=== PATIENT | male | born 1930 | race Caucasian/White ===

== ENCOUNTER 2017-10-23 14:01 | Emergency (ER) | payer MEDICARE, OTHER ==
[~2017-10-23] VITALS: Ht 180.3 cm; Wt 81.7 kg
[~2017-10-23 14:01] MED LIST: ALPHA LIPOIC A300 MG PO; ALPHA-LIPOIC AC50 MG PO; ASPIR 8181 MG PO; CLARITIN10 M2 PO; COZAAR50 MG PO; FIBER170 GM PO; GLUCOSAMINE1000 MG PO; HYDROCODON-ACE1 EA10 PO; KEFLEX250 MG PO; KEFLEX500 MG PO; LEVOFLOXACIN500 MG PO; LUCENTIS0.3 MG/0.0 OPTH; LUTEIN6 M1 PO; METFORMIN HCL1000 M1 PO; METFORMIN HCL500 M1 PO; NIASPAN1000 MG PO; NIASPAN500 MG PO; NORCO 7.5-3251 EACH PO; OCUVITE TABLET1 EAC1 PO; PANTOPRAZOLE SO40 MG PO; PEPCID AC10 MG PO; PLAVIX75 MG PO; PRESERVISION L1 EACH PO; SEPTRA DS TABL1 EACH PO; SIMVASTATIN20 MG PO; SLOW-MAG71.5 MG PO; TRIAMTERENE-HC1 EAC1 PO; TRIAMTERENE-HC1 EAC3 PO; ULTRAM50 MG PO; VITAMIN B-121000 MCG PO; VITAMIN B12-FO1 EACH PO; XARELTO10 MG PO
[2017-10-23] MEDS ORDERED: METOPROLOL SUCC25 MG PO (14:21)
[2017-10-23] MEDS ORDERED: PLAVIX75 MG PO (14:21)
--- OUTSIDE RECORDS SUMMARY | 2017-10-23 14:32 | XMS | Clinical Summary ---
Demographics + + + | Address | [address] | | | [place] [address] | + + + | Home Phone | | + + + | Preferred Language | Unknown | + + + | Marital Status | | + + + | Roman Catholic Affiliation | Unknown | + + + | Race | White | + + + | Ethnic Group | Not or | + + + Author + + + | Author | [facility] | + + + | Organization | [facility] | + + + | Address | Unknown | + + + | Phone | Unavailable | + + + Support + + +---------+ + | Name | Relationship | Address | Phone | + + +---------+ + | JAMIL HAWLEY | ECON | Unknown | | + + +---------+ + Care Team Providers + +------+ + | Care Hoop Punch And Coiler Operator Helper Name | Role | Phone | + +------+ + PP | Unavailable | + +------+ + Source Comments MATTHEW is fully live on both [facility] Ambulatory and [facility] InPatient.[facility] Allergies Not on File Current Medications Not on file Active Problems Not on file Social History + +-------+ +--------+------+ | Tobacco Use | Types | Packs/Day | Years | Date | | | | | Used | | + +-------+ +--------+------+ | Never Assessed | | | | | + +-------+ +--------+------+ + + + | Sex Assigned at | Date Recorded | | | | + + + | Not on file | | + + + Plan of Treatment + + + + + | Health Maintenance | Due Date | Last Done | Comments | + + + + + | INFLUENZA VACCINE | | | | | (FLU SHOT) | 8 | | | + + + + + Results Not on filefrom Last 3 Months"
--- OUTSIDE RECORDS SUMMARY | 2017-10-23 14:32 | XMS | Clinical Summary ---
Demographics + + + | Address | [address] | | | [place] [address] | + + + | Home Phone | | + + + | Preferred Language | Unknown | + + + | Marital Status | | + + + | Jain Affiliation | 1076 | + + + | Race | Unknown | + + + | Ethnic Group | Unknown | + + + Author + + + | Author | [facility] | + + + | Organization | [facility] [employer] [facility] | + + + | Address | Unknown | + + + | Phone | Unavailable | + + + Support + + +---------+ + | Name | Relationship | Address | Phone | + + +---------+ + | Afsaneh Sewell | ECON | Unknown | | + + +---------+ + Care Team Providers + +------+ + | Care Director Of Global Sales Name | Role | Phone | + +------+ + | Lacho Foster MD | PP | | + +------+ + Allergies + + + + + + | Active Allergy | Reactions | Severity | Noted | Comments | | | | | Date | | + + + + + + | Sulfamethoxazole-Tri | Other (See Comments) | Medium | 12/20/19 | flushing effect | | methoprim | | | 17 | | + + + + + + Current Medications + + +---------+---------+------+------+-------+ | Prescription | Sig. | Disp. | Refills | Star | End | Statu | | | | | | t | Date | s | | | | | | Date | | | + + +---------+---------+------+------+-------+ | loratadine | Take 10 mg by mouth | | | | | Activ | | (CLARITIN) 10 MG | daily. | | | | | e | | tablet | | | | | | | + + +---------+---------+------+------+-------+ | Alpha-Lipoic Acid | Take 600 mg by mouth | | | | | Activ | | 600 MG CAPS | daily. | | | | | e | + + +---------+---------+------+------+-------+ | Cyanocobalamin | Take 1,000 mcg by | | | | | Activ | | (VITAMIN B 12 PO) | mouth daily. | | | | | e | + + +---------+---------+------+------+-------+ | famotidine | Take 40 mg by mouth | | | | | Activ | | (PEPCID) 10 MG | 2 (two) times daily. | | | | | e | | tablet | | | | | | | + + +---------+---------+------+------+-------+ | triamcinolone | 1 spray by Each Nare | | | | | Activ | | (NASACORT AQ) 55 | route as needed. | | | | | e | | MCG/ACT nasal | | | | | | | | inhaler | | | | | | | + + +---------+---------+------+------+-------+ | sodium chloride | 1 spray by Each Nare | | | | | Activ | | (OCEAN) 0.65 % nasal | route as needed for | | | | | e | | | Congestion. | | | | | | + + +---------+---------+------+------+-------+ | | Take by mouth | | | | | Activ | | Glucosamine-Chondroi | daily. | | | | | e | | tin-Vit C | | | | | | | | 9384-7583-06 MG/30ML | | | | | | | | LIQD | | | | | | | + + +---------+---------+------+------+-------+ | glucose blood test | 1 each by Other | | | | | Activ | | strip | route as needed for | | | | | e | | | Other. Use as | | | | | | | | instructed | | | | | | + + +---------+---------+------+------+-------+ | pseudoephedrine | Take 30 mg by mouth | | | | | Activ | | (SUDAFED) 30 MG | every 4 (four) hours | | | | | e | | tablet | as needed for | | | | | | | | Congestion. | | | | | | + + +---------+---------+------+------+-------+ | aspirin 81 MG EC | Take 1 tablet by | 30 | 1 | 12/2 | | Activ | | tablet | mouth daily. | tablet | | 4/20 | | e | | | | | | 17 | | | + + +---------+---------+------+------+-------+ | clopidogrel | Take 1 tablet by | 30 | 11 | 12/2 | 12/2 | Activ | | (PLAVIX) 75 MG | mouth daily. | tablet | | / | 11/11 | e | | tablet | | | | 17 | 18 | | + + +---------+---------+------+------+-------+ | insulin lispro, | Inject 0-14 Units | 10 mL | 0 | 12/2 | | Activ | | human, (HUMALOG) 100 | into the skin 3 | | | 20 | | e | | UNIT/ML injection | (three) times daily | | | 17 | | | | | before meals for 30 | | | | | | | | days. High Dose AC | | | | | | | | Insulin Sliding | | | | | | | | ScaleBlood Glucose | | | | | | | | High DoseLess than | | | | | | | | 70Initiate | | | | | | | | Hypoglycemia | | | | | | | | Bavsvpty39-404 0 | | | | | | | | Prblz495-5328 | | | | | | | | Sanwe035-9215 | | | | | | | | Iqbzp585-4107 | | | | | | | | Hjgcz099-0796 | | | | | | | | Tngyr910-56076 | | | | | | | | Nshsa042-15934 | | | | | | | | Units>400* 14 | | | | | | | | Units | | | | | | + + +---------+---------+------+------+-------+ | metoprolol | Take 1 tablet by | 60 | 1 | 12/2 | | Activ | | (LOPRESSOR) 25 MG | mouth 2 (two) times | tablet | | 4/20 | | e | | tablet | daily. | | | 17 | | | + + +---------+---------+------+------+-------+ | metFORMIN | Take 1 tablet by | 30 | 0 | 12/2 | | Activ | | (GLUCOPHAGE-XR) 500 | mouth daily with | tablet | | 7/20 | | e | | MG 24 hr tablet | dinner. | | | 17 | | | + + +---------+---------+------+------+-------+ | calcium carbonate | Take 2 tablets by | 30 | 0 | 12/2 | | Activ | | (TUMS) 500 MG | mouth every 6 (six) | tablet | | 7/20 | | e | | chewable tablet | hours as needed. | | | 17 | | | + + +---------+---------+------+------+-------+ | simvastatin | Take 1 tablet by | 30 | 11 | 12/2 | | Activ | | (ZOCOR) 20 MG tablet | mouth nightly. | tablet | | 7/20 | | e | | | | | | 17 | | | + + +---------+---------+------+------+-------+ | losartan (COZAAR) | Take 25 mg by mouth | | | | | Activ | | 25 MG tablet | daily. | | | | | e | + + +---------+---------+------+------+-------+ | brimonidine | Place 1 drop into | | 0 | 04/1 | | Activ | | (ALPHAGAN) 0.2 % | both eyes daily. | | | 9/20 | | e | | ophthalmic solution | | | | 18 | | | + + +---------+---------+------+------+-------+ Active Problems + + + | Problem | Noted Date | + + + | Status post aortic valve replacement with bioprosthetic valve | 06/20/2017 | + + + | Status post double vessel coronary artery bypass | 06/20/2017 | + + + | History of aortic valve replacement with porcine valve | 06/12/2017 | + + + + + | Overview: #21 Mala COOMBS | + + + + + | S/P CABG x 2 | 06/12/2017 | + + + + + | Overview: REHMAN>LAD, SVG>PDA, KATHYA ligation (45 mm AtriClip) | + + + + + | Aortic valve disorder | 06/08/2017 | + + + + + | Overview: Added automatically from request for surgery [id number] | + + + + + | Nonrheumatic aortic valve stenosis | 04/26/2016 | + + + + + | Last Assessment & Plan: /AI. [facility] severe calc /mild AI (calc AVAV 1.0cm2, peak/mean | | gradients 68/49mmHg), concentric LVH, LVEF >70%, mild MR. | + + + + + | CAD (coronary artery disease), [place] coronary artery | 06/10/2014 | + + + + + | Last Assessment & Plan: 2V-CAD, Hx PCI/stent, LVEF >70%. | | 85yo WM, establishing cardiac care. Known to have coronary | | artery disease and aortic stenosis. 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 He continues to be relatively active, | | stating that he exercises at the local [employer] 2-3 days per | | week, and will be down anywhere from one to 2 hours at a time. | | He does not walk on the treadmill, however uses a stair stepping | | machine, states that he is on the stair stepper for approximately | | 10 minutes. In addition this he also does weight lifting, | | walks, hikes, and fishes. He admits a mild degree of left-sided | | chest discomfort with activity, mild degree of shortness of | | breath, but this is not nearly as severe as what he had when he | | had his stent placed nearly 2 years ago. He describes his | | symptoms as relatively mild, and prior to the stent described the | | chest discomfort as severe and sharp, lasting much longer, and | | radiating down his arms. None of these are currently present. | | He is unaware of any palpitations, however, states that his blood | | pressure has been borderline low, and when he arises he does | | notice transient lightheadedness. He has not fallen, there is | | been no syncope. He denies any orthopnea or PND or edema. An | | echocardiogram dated 04/14/2014 revealed a calculated UMM 1.1cm2, | | with peak/mean gradients 51/39mmHg. as compared to the most | | recent echocardiogram dated 04/21/2016, which reveals a | | calculated UMM 1.0cm2, with peak/mean gradients 68/49mmHg. His | | recent ECG is reviewed. Recent labs reviewed. And his angiogram | | report from 2013 is also reviewed. Today we had a long | | discussion regarding valvular heart disease, and at the aortic | | valve will continue to deteriorate, ultimately requiring | | replacement. Although he is advanced years, however TAVR is | | available, and we discussed the symptoms of increasing angina, | | exertional shortness of breath, and exertional lightheadedness to | | the point of syncope, as symptoms associated with progressive | | aortic stenosis. As he described above, he still remains fairly | | active and has only mild symptoms. Because of his orthostatic | | symptoms, we DC'd his triamterene today. And regarding | | endocarditis prophylaxis, although he does not meet the strict | | criteria, because of his advanced age, I would recommend | | endocarditis prophylaxis. With regards to his angina, I believe | | this can be followed clinically, if his angina worsens, repeat | | coronary assessment would be reasonable. We'll have him back in | | 6 months for repeat evaluation.Hx CABG: noHx PCI/stent: | | 06/10/2016, distal RCA (3.0*15mm Resolute ANSON).Hx Pacemaker/ICD: | | noLast Cath, 06/10/2014: left main OK, long 50-70% mid-LAD (FFR | | 0.82), 50% osteal D1, LCx OK, 50-70% mid-RCA (FFR 0.93), 80% | | distal RCA, small RPDA, large RPLA, Distal RCA stented. LV: | | 149/18, Ao: 133/68, p-p 16mmHg, mean gradient 25mmHg.Last Echo, | | 04/21/2016 ([facility] severe calc /mild AI (calc AVAV | | 1.0cm2, peak/mean gradients 68/49mmHg), concentric LVH, LVEF | | >70%, mild MR.Last Stress Test: naECG, 04/06/2016 (Dr Rider): | | sinus rhythm, 72bpm, possible old inferior SC, IVCD. | + + + + + | Chest pain | 06/10/2014 | + + + | Essential hypertension | 06/10/2014 | + + + + + | Last Assessment & Plan: Hypertension, patient reports | | episodes of borderline blood pressure, symptoms of orthostasis. | | Today we DC'd the triamterene, he'll continue his losartan 25 mg | | daily. | + + + + + | DM (diabetes mellitus) | 06/10/2014 | + + + + + | Last Assessment & Plan: DM2, managed by PCP. | + + + + + | Aortic stenosis | 06/10/2014 | + + + | Hyperlipidemia | 06/10/2014 | + + + + + | Last Assessment & Plan: Hyperlipidemia, at goal, continue | | current meds at current dose (simvastatin). Labs reviewed with | | patient.Lab, 04/11/2016: T Chol: 125, LDL-Chol: 70, HDL-Chol: 34, | | Tri Liver enzymes NML, K: 4.0, | | BUN/Cr: 26/1.2 (GFR 59), glu: 91 | | HgbA1c: 5.4, WBC: 7.1, H/H: 12.9/37.3, plt: 214 | + + + + + | [place] coronary artery calcium score greater than 400 | 06/10/2014 | + + + | Status post insertion of drug eluting coronary artery stent | 06/10/2014 | + + + | Diabetes mellitus, type 2 | | + + + | S/P PTCA (percutaneous transluminal coronary angioplasty) | | + + + Encounters +--------+ + + + + | Date | Type | Specialty | Care Team | Description | +--------+ + + + + | 10/22/ | Documentati | | Marleni De La Fuente MA | Other ([facility] re[facility] | | 2017 | on Only | | | forms) | +--------+ + + + + | 10/22/ | Documentati | | Marleni De La Fuente MA | Other ([facility] | | 2018 | on Only | | | report) | +--------+ + + + + | 10/16/ | Office | | Jorden Lucio, | S/P aortic valve | | 2017 | Visit | | MD | replacement with | | | | | | bioprosthetic valve | | | | | | (Primary Dx); | | | | | | Nonrheumatic aortic | | | | | | valve stenosis; | | | | | | Coronary artery | | | | | | disease, angina | | | | | | presence | | | | | | unspecified, | | | | | | unspecified vessel | | | | | | or lesion type, | | | | | | unspecified whether | | | | | | [place] or | | | | | | transplanted heart; | | | | | | S/P CABG x 2; | | | | | | Essential | | | | | | hypertension with | | | | | | goal blood pressure | | | | | | less than 140/90; | | | | | | Pure | | | | | | hypercholesterolemia | +--------+ + + + + | 09/24/ | Documentati | | Marleni De La Fuente MA | Other ([facility] | | 2017 | on Only | | | form) | +--------+ + + + + | 08/23/ | Telephone | | Marleni De La Fuente MA | | | 2017 | | | | | +--------+ + + + + | 08/21/ | Telephone | | Marleni De La Fuente MA | | | 2017 | | | | | +--------+ + + + + | 08/20/ | Documentati | Marleni Stanford MA | Rehana ([facility] | | 2017 | on Only | | | rehab notes) | +--------+ + + + + | 08/03/ | Telephone | | Yumiko Reddy RN | Care Coordination | | 2017 | | | | | +--------+ + + + + from Last 3 Months Family History + + +------+ + | Medical History | Relation | Name | Comments | + + +------+ + | Diabetes type II | Father | | | + + +------+ + | Stroke | Father | | | + + +------+ + | Arrhythmia | Mother | | pacemaker placed in her 90s | + + +------+ + | Heart disease | Mother | | | + + +------+ + | Rheumatic Fever | Mother | | | + + +------+ + | Arthritis | Sister | | | + + +------+ + | Diabetes type II | Sister | | | + + +------+ + | Parkinson's disease | Sister | | | + + +------+ + + +------+ + + | Relation | Name | Status | Comments | + +------+ + + | Father | | | DMII, CVA,HTN | | | | (Age | | | | | 87) | | + +------+ + + | Mother | | | pacemaker implant | | | | (Age | | | | | 95) | | + +------+ + + | Sister | | Alive | | + +------+ + + | Sister | | | Parkinson | + +------+ + + | Son | | Alive | | + +------+ + + | Son | | Alive | | + +------+ + + Social History + +-------+ +--------+------+ | Tobacco Use | Types | Packs/Day | Years | Date | | | | | Used | | + +-------+ +--------+------+ | Never Smoker | | | | | + +-------+ +--------+------+ + +---+---+---+ | Smokeless Tobacco: | | | | | Never Used | | | | + +---+---+---+ + + +---------+ + | Alcohol Use | Drinks/We | oz/Week | Comments | | | ek | | | + + +---------+ + | No | 1 | 0.6 | occasionally | | | Glasses | | | | | of wine | | | + + +---------+ + + + + | Sex Assigned at | Date Recorded | | | | + + + | Not on file | | + + + Last Filed Vital Signs + + + + | Vital Sign | Reading | Time Taken | + + + + | Blood Pressure | 144/58 | 10/16/2017 3:49 PM PDT | + + + + | Pulse | 57 | 10/16/2017 3:49 PM PDT | + + + + | Temperature | 36.8 C (98.2 F) | 07/05/2017 10:52 AM PST | + + + + | Respiratory Rate | 20 | 06/20/2017 12:18 PM PST | + + + + | Oxygen Saturation | 94% | 10/16/2017 3:49 PM PDT | + + + + | Inhaled Oxygen | - | - | | Concentration | | | + + + + | Weight | 84.6 kg (186 lb 6.4 | 10/16/2017 3:49 PM PDT | | | oz) | | + + + + | Height | 180.3 cm (5' 11") | 10/16/2017 3:49 PM PDT | + + + + | Body Mass Index | 26 | 10/16/2017 3:49 PM PDT | + + + + Plan of Treatment +--------+---------+ + + + | Date | Type | Specialty | Care Team | Description | +--------+---------+ + + + | 02/19/ | Office | | Jorden Lucio, | | | 2017 | Visit | | [address] | | | | | | [place], | | | | | | [place] [address] | | | | | | [phone] | | | | | | | | +--------+---------+ + + + + + + + + | Health Maintenance | Due Date | Last Done | Comments | + + + + + | Diabetic Eye Exam | | | | | | 0 | | | + + + + + | Diabetic Foot Exam | | | | | | 0 | | | + + + + + | Microalbumin | | | | | Screening | 0 | | | + + + + + | Vaccine: | | | | | Dtap/Tdap/Td (1 - | 9 | | | | Tdap) | | | | + + + + + | Vaccine: | | | | | Pneumococcal 65+ | 5 | | | | Low/Medium Risk (1 | | | | | of 2 - PCV13) | | | | + + + + + | Hemoglobin A1c | | 06/13/2017 | | | | 8 | | | + + + + + | Vaccine: Influenza | | | | | (Season Ended) | 8 | | | + + + + + Implants + +------+-------+ +--------+--------+--------+ | Implanted | Type | Area | Manufacture | Device | Expira | Model | | | | | r | | tion | / | | | | | | Identi | Date | Serial | | | | | | fier | | / Lot | + +------+-------+ +--------+--------+--------+ | Clip Occl Atri Stnd Hdl 45mm | | N/A: | ARTICURE | | 03/25/ | [id number] | | - [id number]: Qty: 1 | | Heart | INC - ARTC | | 2018 | / | | on 06/12/2017 by Tori, | | | | | | /[id number] | | Karl Harvey MD | | | | | | | + +------+-------+ +--------+--------+--------+ | Valve Aort Pericard Mgnaes 21 | | N/A: | [facility] | | 11/21/ | [id number] | | - [id number]: Qty: 1 | | Heart | [employer] | | 2020 | / | | on 06/12/2017 by Tori, | | | [facility] - | | | /[id number] | | Karl Harvey MD | | | EDLS | | | 50 | + +------+-------+ +--------+--------+--------+ Results Not on filefrom Last 3 Months Insurance + +--------+ +------+-------+ + | Payer | Benefi | Subscriber | Type | Phone | Address | | | t Plan | ID | | | | | | / | | | | | | | Group | | | | | + +--------+ +------+-------+ + | MEDICARE | MEDICA | xxxxxxxxxx | | | [address] | | | RE | | | | [place] [address] | | | IP-OP | | | | | + +--------+ +------+-------+ + | ODS HEALTH PLAN | ODS | xxxxxxxxx | | | | | | HEALTH | | | | | | | PLAN | | | | | + +--------+ +------+-------+ + + +--------+ +--------+ + + | Guarantor Name | Accoun | Relation to | Date | Phone | Billing Address | | | t Type | Patient | of | | | | | | | | | | + +--------+ +--------+ + + | BETTY SEWELL | Person | Self [birth year] Home: | [address] | | | [place] | | 1931 | [phone] [place] | | | [place] | | | [phone] | + +--------+ +--------+ + +
--- OUTSIDE RECORDS SUMMARY | 2017-10-23 14:32 | XMS | Encounter Summary ---
Demographics + + + | Address | [address] | | | [place] [address] | + + + | Home Phone | | + + + | Preferred Language | Unknown | + + + | Marital Status | | + + + | Mandaen Affiliation | 1076 | + + + | Race | Unknown | + + + | Ethnic Group | Unknown | + + + Author + + + | Author | [facility] | + + + | Organization | [facility] | + + + | Address | Unknown | + + + | Phone | Unavailable | + + + Support + + +---------+ + | Name | Relationship | Address | Phone | + + +---------+ + | Afsaneh Sewell | ECON | Unknown | | + + +---------+ + Care Team Providers + +------+ + | Care Pulp And Paper Tester Name | Role | Phone | + +------+ + | Lacho Foster MD | PCP | | + +------+ + Reason for Visit +--------+ + | Reason | Comments | +--------+ + | Other | [facility] forms | +--------+ + Encounter Details +--------+ + + + + | Date | Type | Department | Care Team | Description | +--------+ + + + + | 10/22/ | Documentati | MORIS Wells | Marleni De La Fuente MA | Other ([facility] | | 2018 | on Only | Tobias Ramirez | | peter) | | | | [address] | | | | | | [place] | | | | | | [address] | | | | | | [phone] | | | +--------+ + + + + Social History + +-------+ +--------+------+ [...] on file | | + + + as of this encounter Plan of Treatment +--------+---------+ + + + | Date | Type | Specialty | Care Team | Description | +--------+---------+ + + + | 02/19/ | Office | Cardiology | Jorden Lucio, | | | 2018 | Visit | | MD [address] | | | | | | [place], | | | | | | [place] [address] | | | | | | [phone] | | | | | | | | +--------+---------+ + + + as of this encounter Visit Diagnoses Not on filein this encounter"
--- OUTSIDE RECORDS SUMMARY | 2017-10-23 15:10 | XMS | Clinical Summary ---
Demographics + + + | Address | [address] | | | [place] [address] | + + + | Home Phone | | + + + | Preferred Language | Unknown | + + + | Marital Status | | + + + | Restorationist Affiliation | 1076 | + + + | Race | Unknown | + + + | Ethnic Group | Unknown | + + + Author + + + | Author | [facility] | + + + | Organization | [facility] | + + + | Address | Unknown | + + + | Phone | Unavailable | + + + Support + + +---------+ + | Name | Relationship | Address | Phone | + + +---------+ + | Afsaneh Sewell | ECON | Unknown | | + + +---------+ + Care Team Providers + +------+ + | Care Physics Department Chair Name | Role | Phone | + [...] | | | | | | | [phone] MG/30ML | | | | | | [...] | | | | | | | [id number] 0 | | | | | | | | Lfhff711-6016 | | | | | | | | [id number] | | | | | | | | Dmefl750-5377 | | | | | | | | Matvj967-6437 | | | | | | | | [id number] | | | | | | | | [id number] | | | | | | | [...] Overview: Added automatically from request for surgery [id number] | + + + + + | Nonrheumatic aortic valve stenosis | 04/26/2016 | + + + + + | Last Assessment & Plan: /AI. [facility] severe calc /mild AI (calc AVAV 1.0cm2, peak/mean | | gradients 68/49mmHg), concentric LVH, LVEF >70%, mild MR. | + + + + + | CAD (coronary artery disease), [place] coronary artery | 06/10/2014 | + + + + + | Last Assessment & Plan: 2V-CAD, Hx PCI/stent, LVEF >70%. | | 85yo WM, establishing cardiac care. Known to have coronary | | artery disease and aortic stenosis. 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 | + + + + + [...] Marleni De La Fuente MA | Other ([facility] | | 2017 | on Only | | | forms) | +--------+ + + + + | 10/22/ | Documentati | | Marleni De La Fuente MA | Other ([facility] | | 2018 | on [...] whether | | | | | | [place] or | | | | | | [...] Marleni De La Fuente MA | Other ([facility] | | 2017 | on [...] Documentati | Marleni Stanford MA | Rehana ([facility] | | 2017 | on Only [...] | | | | | | [place] [address] | | | | | | [phone] | | | | | | | [...] N/A: | ARTICURE | | 03/25/ | [id number] | | - [id number]: Qty: 1 | | Heart | INC - ARTC | | 2018 | / | | on 06/12/2017 by Tori, | | | | | | /[id number] | | Karl Harvey MD | | | | | | | + +------+-------+ +--------+--------+--------+ | Valve Aort Pericard Mgnaes 21 | | N/A: | [facility] | | 11/21/ | [id number] | | - [id number]: Qty: 1 | | Heart | [employer] | | 2020 | / | | on 06/12/2017 by Tori, | | | [facility] - | | | /[id number] | | Karl Harvey MD | | [...] | xxxxxxxxxx | | | [address] | | | RE | | | | [place] [phone] | | | IP-OP | | | [...] Self | [birth year] | Home: | [address] | | | [place] | | 1931 | [phone] [place] | | | [place] | | [phone] | + +--------+ +--------+ + +
--- OUTSIDE RECORDS SUMMARY | 2017-10-23 15:10 | XMS | Clinical Summary ---
Demographics + + + | Address | [address] | | | [place] [address] | + + + | Home Phone | | + + + | Preferred Language | Unknown | + + + | Marital Status | | + + + | Restoration Affiliation | 1076 | + + + | Race | Unknown | + + + | Ethnic Group | Unknown | + + + Author + + + | Author | [facility] | | | and [place] | + + + | Organization | [facility] | | | and [place] | + + + | Address | Unknown | + + + | Phone | Unavailable | + + + Support + + +---------+ + | Name | Relationship | Address | Phone | + + +---------+ + | JAMIL HAWLEY | ECON | Unknown | | + + +---------+ + Care Team Providers + +------+ + | Care Airport Sales Agent Name | Role | Phone | + +------+ + PP | Unavailable | + +------+ + Allergies Not on File Current Medications Not [...]
--- OUTSIDE RECORDS SUMMARY | 2017-10-23 15:10 | XMS | Encounter Summary ---
Demographics + + + | Address | [address] | | | [place] [address] | + + + | Home Phone | | + + + | Preferred Language | Unknown | + + + | Marital Status | | + + + | Adventism Affiliation | 1076 | + + + | Race | Unknown | + + + | Ethnic Group | Unknown | + + + Author + + + | Author | [facility] | + + + | Organization | [facility] [employer] [facility] | + + + | Address | Unknown | + + + | Phone | Unavailable | + + + Support + + +---------+ + | Name | Relationship | Address | Phone | + + +---------+ + | Afsaneh Sewell | ECON | Unknown | | + + +---------+ + Care Team Providers + +------+ + | Care Ocular Pathologist Name | Role | Phone | + +------+ + | Lacho Foster MD | PCP | | + +------+ + Reason for Visit +--------+ + | Reason | Comments | +--------+ + | Other | [facility] rehab form | +--------+ + Encounter Details +--------+ + + + + | Date | Type | Department | Care Team | Description | +--------+ + + + + | 09/24/ | Documentati | [facility] | Marleni De La Fuente MA | Other ([facility] rehab | | 2018 | on Only | Tobias Ramirez | | jaz) | | | | [address] | | | | | | [place] | | | | | | [address] | | | | | | [phone] | | | +--------+ + + + [...] | | | | | | [place] [address] | | | | | | [phone] | | | | | | | | +--------+---------+ + + + as of this encounter Visit Diagnoses Not on filein this encounter"
--- OUTSIDE RECORDS SUMMARY | 2017-10-23 15:10 | XMS | Encounter Summary ---
Demographics + + + | Address | [address] | | | [place] [address] | + + + | Home Phone | | + + + | Preferred Language | Unknown | + + + | Marital Status | | + + + | Oriental Orthodox Affiliation | 1076 | + + + | Race | Unknown | + + + | Ethnic Group | Unknown | + + + Author + + + | Author | [facility] | + + + | Organization | [facility] | + + + | Address | Unknown | + + + | Phone | Unavailable | + + + Support + + +---------+ + | Name | Relationship | Address | Phone | + + +---------+ + | Afsaneh Sewell | ECON | Unknown | | + + +---------+ + Care Team Providers + +------+ + | Care Engineer Automated Equipment Name | Role | Phone | + +------+ + | Lacho Foster MD | PCP | | + +------+ + Reason for Visit + + + | Reason | Comments | + + + | Follow-up | | + + + Encounter Details +--------+---------+ + + + | Date | Type | Department | Care Team | Description | +--------+---------+ + + + | 10/16/ | Office | [facility] | Jorden Lucio, | S/P aortic valve | | 2018 | Visit | [facility] | [address] | replacement with | | | | [address] | [place], | bioprosthetic valve | | | | [address] | [place] [address] | (Primary Dx); | | | | [place] [address] | [phone] | Nonrheumatic aortic | | | | [phone] | | valve stenosis; | | | [...] whether | | | | | | [place] or | | | | | | [...] | | | | | hypercholesterolemia | +--------+---------+ + + + Social History + +-------+ [...] + + + as of this encounter Last Filed Vital Signs + + + + | Vital Sign | Reading | Time Taken | + + + + | Blood Pressure | 144/58 | 10/16/2017 3:49 PM PDT | + + + + | Pulse | 57 | 10/16/2017 3:49 PM PDT | + + + + | Temperature | - | - | + + + + | Respiratory Rate | - | - | + + + + | Oxygen [...] PM PDT | + + + + in this encounter Progress Notes Jorden Lucio MD - 10/16/2017 3:45 PM PDTFormatting of this note may be different from the original. Subjective: Patient ID: Darrion Sewell Jr. is a 86 y.o. male. HPI The following portions of the patient's history were reviewed and updated as appropriate: a llergies, current medications, past family history, past medical history, past social histor y, past surgical history and problem list. Mr. Sewell, accompanied by his , came to the office today for a his first post hospit al follow-up visit for his 2 vessel CAD and severe . He underwent aortic valve replaceme nt with a #21 Magna Ease bioprosthetic valve, 2 vessel CABG with a REHMAN graft to the LAD and vein graft to the right PDA, with ligation of the right atrial appendage on 06/12/17. He seems to be doing quite well now. He has been participating in the cardiac rehab program at [facility], and I reviewed his daily reports. His resting blood pressure s are quite variable, often high, and his blood pressure was slightly elevated today, but hi s home blood pressure readings are usually quite well-controlled, looking at his home record s, so I made no changes in his medications today. He was exercising fairly regularly prior to his surgery, and he will be able to resume his former activities once he finishes cardiac rehab. He notes that he does fatigue more easily, which is expected at age 86. He also no irasema that he has mild memory issues since the surgery, particularly in recalling names, and I told him that this is common, and I cannot guarantee that it will improve, although it ofte n does. He can go back to his usual activities at this time, and he had a long list of ques tions regarding them that we went through. A repeat echo was done to get baseline measureme nts for his new bioprosthetic valve, for comparison purposes in the future, should there be any problems, with an EF > 70% and normal measurements for this type in size of valve. I wi ll see him back in 4 months for follow-up. DO NOT RESUSCITATE code status. Review of Systems CONSTITUTIONAL: No recent significant weight change, denies recent fever, chills, night sw eats, significant fatigue NEUROLOGIC: No history of CVA, TIA, migraines, seizures, syncope. No dizziness, gets mild lightheadedness doing yard work. He has a history of peripheral neuropathy of both legs wi th numbness and occasional sharp, stabbing or at times electric shock-like paresthesias, and sciatica of the left leg more often than the right. EYES: Macular degeneration. No amaurosis, diplopia, recent visual changes, cataracts or g [place] ENT: No hearing loss, tinnitus, epistaxis, dysphagia ENDOCRINE: He has history of type II Diabetes mellitus. No history of thyroid disorders or other endocrine problems. No excessive hunger, thirst. PULMONARY/SLEEP: No dyspnea, orthopnea, paroxysmal nocturnal dyspnea. No history of asthm a, emphysema. Denies significant snoring, daytime somnolence. Sleep is refreshing. CARDIOVASCULAR: Denies chest pain, pressure or discomfort. He has a history of CAD, dista l RCA stent 06/07 with 70% stenoses in the LAD and mid RCA. No history of heart failure. No history of cardiac arrhythmias. No palpitations. No history of a heart murmur with severe c alcific , no h/o rheumatic fever. He has a history of Essential Hypertension, Hyperlipide renetta. No edema, no claudication symptoms. -- Echo (07/11/17): EF > 70%, grade 2 diastolic dysfunction, normal RV size and function. N ormal 21 mm Magna bioprosthetic AVR (UMM 1.0 cm , peak/mean gradients 39.9/23.7 mmHg, peak velocity 3.2 m/s, MR, TR, trace PI -- 2-vessel CABG/AVR/KATHYA Ligation (06/12/17): 21 Magna Ease bio-AVR, REHMAN>LAD, SVG>PDA, 45 mm AtriClip -- R/Left Cath (06/01/17): RA-3, PA-29/8, mean 15, PCW-6, CO-5.8, CI-2.85, LM-normal, LAD-mi d 70%, LCx-normal. RCA-mid 70%, could not cross AoV -- Echo (03/20/17): EF > 70%, normal RV, severe , UMM 0.8 cm, peak / mean gradient 60.15 / 39.25 mmHg -- Echo (04/21/16 - [facility]'s): severe calcific /mild AI (UMM 1.0 cm, peak/mean grad ients 68/49mmHg), concentric LVH, LVEF >70%, mild MR. -- Cardiac Cath/PCI (06/10/14): LM-OK, long 50-70% mid-LAD (FFR 0.82), 50% ostial D1, LCx-O K, 50-70% mid-RCA (FFR 0.93), 80% distal RCA > 3.0x15mm Resolute ANSON, small RPDA, large RPLA , Distal RCA stented. LV: 149/18, Ao: 133/68, mean gradient 25mmHg. GASTROINTESTINAL: No recent abdominal pain, nausea, vomiting or diarrhea. Denies PUD, priyanka na, hematochezia, hepatitis. RENAL/: Benign prostatic hypertrophy. No dysuria, hematuria, urinary urgency, hesitancy . HEMATOLOGY/ONCOLOGY: No h/o bleeding disorders, DVT, PE. Denies easy bruisability or ble eding. No history of anemia, transfusions. No history of cancer. MUSCULOSKELETAL: No myalgias, arthralgias. No history of rheumatologic or autoimmune dise ases. CUTANEOUS: No rashes, pruritus, lesions. PSYCHIATRIC: No history of depression, anxiety or other psychiatric problems. Past Medical History Diagnosis Date Anemia Aortic stenosis Asthma childhood BPH (benign prostatic hypertrophy) Coronary artery disease Diabetes mellitus, type 2 (HCC) 2009 Dyspepsia History of aortic valve replacement with porcine valve 06/12/2017 #21 Magna Ease AVR HTN (hypertension) Hyperlipidemia Macular degeneration Neuropathy S/P CABG x 2 06/12/2017 REHMAN>LAD, SVG>PDA, KATHYA ligation (45 mm AtriClip) S/P PTCA (percutaneous transluminal coronary angioplasty) Sciatica Unspecified hearing loss UTI (urinary tract infection) 05/23/2017 Past Surgical History Procedure Laterality Date CARDIAC CATHETERIZATION COLONOSCOPY CORONARY ANGIOPLASTY 06/10/2014 3.0x15mm Resolute ANSON distal RCA CORONARY ARTERY BYPASS GRAFT N/A 06/12/2017 Procedure: CABG - AORTIC VALVE REPAIR/ REPLACEMENT; Surgeon: Karl Valle MD; Locat ion: [facility]; Service: Cardiac; Laterality: N/A; Sternotomy, REHMAN takedown, RLE EVH. FRACTURE SURGERY HARDWARE PRESENT HARDWARE REMOVAL LASER OF PROSTATE W/ GREEN LIGHT PVP N/A left hip pinning Left NASAL SINUS SURGERY N/A TONSILLECTOMY UNLISTED PROCEDURE ARTHROSCOPY Left hip fx., 3 pins in hip Family History Problem Relation Age of Onset Heart disease Mother Arrhythmia Mother pacemaker placed in her 90s Rheumatic Fever Mother Diabetes type II Father Stroke Father Diabetes type II Sister Arthritis Sister Parkinson's disease Sister reports that he has never smoked. He has never used smokeless tobacco. He reports that he does not drink alcohol or use drugs. Allergies Allergen Reactions Bactrim [Sulfamethoxazole-Trimethoprim] Other (See Comments) flushing effect Current Outpatient Prescriptions: Alpha-Lipoic Acid 600 MG CAPS, Take 600 mg by mouth daily., Disp: , Rfl: aspirin 81 MG EC tablet, Take 1 tablet by mouth daily., Disp: 30 tablet, Rfl: 1 brimonidine (ALPHAGAN) 0.2 % ophthalmic solution, Place 1 drop into both eyes daily., Disp: , Rfl: 0 calcium carbonate (TUMS) 500 MG chewable tablet, Take 2 tablets by mouth every 6 (six) hours as needed., Disp: 30 tablet, Rfl: 0 clopidogrel (PLAVIX) 75 MG tablet, Take 1 tablet by mouth daily., Disp: 30 tablet, Rfl : 11 Cyanocobalamin (VITAMIN B 12 PO), Take 1,000 mcg by mouth daily., Disp: , Rfl: famotidine (PEPCID) 10 MG tablet, Take 40 mg by mouth 2 (two) times daily., Disp: , Rf l: Kpyctrdkkcw-Xfrokqwpoxy-Jme C 9730-6102-45 MG/30ML LIQD, Take by mouth daily., Disp: , Rfl: glucose blood test strip, 1 each by Other route as needed for Other. Use as instructed , Disp: , Rfl: loratadine (CLARITIN) 10 MG tablet, Take 10 mg by mouth daily., Disp: , Rfl: losartan (COZAAR) 25 MG tablet, Take 25 mg by mouth daily., Disp: , Rfl: metFORMIN (GLUCOPHAGE-XR) 500 MG 24 hr tablet, Take 1 tablet by mouth daily with dinne r., Disp: 30 tablet, Rfl: 0 metoprolol (LOPRESSOR) 25 MG tablet, Take 1 tablet by mouth 2 (two) times daily., Disp : 60 tablet, Rfl: 1 pseudoephedrine (SUDAFED) 30 MG tablet, Take 30 mg by mouth every 4 (four) hours as ne eded for Congestion., Disp: , Rfl: simvastatin (ZOCOR) 20 MG tablet, Take 1 tablet by mouth nightly., Disp: 30 tablet, Rf l: 11 sodium chloride (OCEAN) 0.65 % nasal, 1 spray by Each Nare route as needed for Congest ion., Disp: , Rfl: triamcinolone (NASACORT AQ) 55 MCG/ACT nasal inhaler, 1 spray by Each Nare route as ne eded., Disp: , Rfl: insulin lispro, human, (HUMALOG) 100 UNIT/ML injection, Inject 0-14 Units into the ski n 3 (three) times daily before meals for 30 days. High Dose AC Insulin Sliding Scale Blood G lucose High Dose Less than 70 Initiate Hypoglycemia Protocol 70-119 0 Units 120-149 2 Uni ts 150-199 3 Units 200-249 4 Units 250-299 7 Units 300-349 10 Units 350-399 11 Units >400* 14 Units, Disp: 10 mL, Rfl: 0 Objective: Physical Exam BP 144/58 (BP Location: Left upper arm, Patient Position: Sitting) | Pulse 57 | Ht 1.803 m (5' 11") | Wt 84.6 kg (186 lb 6.4 oz) | SpO2 94% | BMI 26.00 kg/m GENERAL: Well developed, well nourished, in no distress. Appears approximately stated age . HEENT: Normocephalic, atraumatic. Bilateral hearing aids. EYES: PERRL, sclerae anicteric, no xanthelsasmas MOUTH: Oral mucosae moist, dentition adequate, no lesions noted NECK: No JVD, lymphadenopathy, thyromegaly, bruits. Carotid pulses are 2+ bilaterally LUNGS: Decreased breath sounds at the left base, otherwise clear bilaterally, with no rale s, rhonchi or wheezing noted, respirations unlabored HEART: Healing sternotomy incision. Nondisplaced PMI, regular rate and rhythm, S1, S2 nor mal. 2/6 systolic crescendo decrescendo murmur at the base, without radiation. No rubs or gallops noted. ABDOMEN: Soft, nontender, no organomegaly, masses or bruits. Bowel sounds are normal in a ll 4 quadrants. The abdominal aortic pulsation is not palpable. EXTREMITIES: 1+ right pedal edema 1/3 way to the knee. Healing venous harvest incision in the right leg. Radial pulses 2+ bilaterally. Femoral pulses are 2+ bilaterally without br uits. DP and PT pulses are 2+ bilaterally. SKIN: Warm and dry, capillary refill is normal, no lesions. NEUROLOGIC: Awake, alert and oriented x 3. No focal motor deficits. PSYCHIATRIC: Appropriate, affect appears normal Assessment and Plan: There are no diagnoses linked to this encounter. in this encounter Plan of Treatment +--------+---------+ + + + | Date | Type | Specialty | Care Team | Description | +--------+---------+ + + + | 02/19/ | Office | Cardiology | Jorden Lucio, | | | 2017 | Visit | | MD [address] | | | | | | [place], | | | | | | [place] [address] | | | | | | [phone] | | | | | | | | +--------+---------+ + + + as of this encounter Visit Diagnoses + + | Diagnosis | + + | S/P aortic valve replacement with bioprosthetic valve - Primary | + + | Heart valve replaced by other means | + + | Nonrheumatic aortic valve stenosis | + + | Aortic valve disorders | + + | Coronary artery disease, angina presence unspecified, unspecified vessel or lesion type, | | unspecified whether [place] or transplanted heart | + + | S/P CABG x 2 | + + | Postsurgical aortocoronary bypass status | + + | Essential hypertension with goal blood pressure less than 140/90 | + + | Pure hypercholesterolemia | + +
--- OUTSIDE RECORDS SUMMARY | 2017-10-23 15:10 | XMS | Encounter Summary ---
Demographics + + + | Address | [address] | | | [place] [address] | + + + | Home Phone | | + + + | Preferred Language | Unknown | + + + | Marital Status | | + + + | Shinto Affiliation | 1076 | + + + | Race | Unknown | + + + | Ethnic Group | Unknown | + + + Author + + + | Author | [facility] | + + + | Organization | [facility] [employer] [facility] [employer] [facility] | + + + | Address | Unknown | + + + | Phone | Unavailable | + + + Support + + +---------+ + | Name | Relationship | Address | Phone | + + +---------+ + | Afsaneh Sewell | ECON | Unknown | | + + +---------+ + Care Team Providers + +------+ + | Care Machine Bookkeeper Name | Role | Phone | + +------+ + | Lacho Foster MD | PCP | | + +------+ + Reason for Visit + + + | Reason | Comments | + + + | Care Coordination | | + + + Encounter Details +--------+ + + + + | Date | Type | Department | Care Team | Description | +--------+ + + + + | 08/03/ | Telephone | [facility] | Yumiko Reddy RN | Care Coordination | | 2018 | | SERVICES [address] | | [address] | | [address] | | | | | | [place] [address] | | | | | | [phone] | | | +--------+ + + + [...] | | | | | | [place] [address] | | | | | | [phone] | | | | | | | | +--------+---------+ + + + as of this encounter Visit Diagnoses Not on filein this encounter"
--- OUTSIDE RECORDS SUMMARY | 2017-10-23 15:10 | XMS | Encounter Summary ---
Demographics + + + | Address | [address] | | | [place] [address] | + + + | Home Phone | | + + + | Preferred Language | Unknown | + + + | Marital Status | | + + + | Jain Affiliation | 1076 | + + + | Race | Unknown | + + + | Ethnic Group | Unknown | + + + Author + + + | Author | [facility] [employer] | + + + | Organization | [facility] [employer] [facility] | + + + | Address | Unknown | + + + | Phone | Unavailable | + + + Support + + +---------+ + | Name | Relationship | Address | Phone | + + +---------+ + | Afsaneh Sewell | ECON | Unknown | | + + +---------+ + Care Team Providers + +------+ + | Care Aerospace Project Engineer Name | Role | Phone | + +------+ + | Lacho Foster MD | PCP | | + +------+ + Reason for Visit +--------+ + | Reason | Comments | +--------+ + | Other | [facility] rehab report | +--------+ + Encounter Details +--------+ + + + + | Date | Type | Department | Care Team | Description | +--------+ + + + + | 10/22/ | Documentati | [facility] | Marleni De La Fuente MA | Other ([facility] rehab | | 2018 | on Only | Cardiology [facility] | | report) | | | | [address] | | | | | | [place] | | | | | | [address] | | | | | | [phone] | | | +--------+ + + + [...] | | | | | | [place] [address] | | | | | | [phone] | | | | | | | | +--------+---------+ + + + as of this encounter Visit Diagnoses Not on filein this encounter"
--- OUTSIDE RECORDS SUMMARY | 2017-10-23 15:10 | XMS | Encounter Summary ---
Demographics + + + | Address | [address] | | | [place] [address] | + + + | Home Phone | | + + + | Preferred Language | Unknown | + + + | Marital Status | | + + + | Worship Affiliation | 1076 | + + + | Race | Unknown | + + + | Ethnic Group | Unknown | + + + Author + + + | Author | [facility] [employer] | + + + | Organization | [facility] [facility] | + + + | Address | Unknown | + + + | Phone | Unavailable | + + + Support + + +---------+ + | Name | Relationship | Address | Phone | + + +---------+ + | Afsaneh Sewell | ECON | Unknown | | + + +---------+ + Care Team Providers + +------+ + | Care Director Case Management Name | Role | Phone | + [...] | | [address] | [place] [address] | (Primary Dx); | | | | [place] [address] | [phone] | Nonrheumatic aortic | | | | [phone] | | valve stenosis; | | | [...] whether | | | | | | [place] or | | | | | | [...] participating in the cardiac rehab program at [facility], and I reviewed his daily reports. [...] / 39.25 mmHg -- Echo (04/21/16 - [facility]'s): severe calcific /mild AI (UMM 1.0 cm, [...] REPLACEMENT; Surgeon: Karl Valle MD; Locat ion: [facility]; Service: Cardiac; Laterality: N/A; [...] (two) times daily., Disp: , Rf l: Nvaeyztbtgi-Ngawvcwruyc-Xzb C 5825-2600-38 MG/30ML LIQD, Take by mouth daily., Disp: [...] | | | | | | [place] [address] | | | | | | [phone] | | | | | | | [...] or lesion type, | | unspecified whether [place] or transplanted heart | + + | S/P CABG x 2 | + + | Postsurgical aortocoronary bypass status | + + | Essential hypertension with goal blood pressure less than 140/90 | + + | Pure hypercholesterolemia | + +
--- OUTSIDE RECORDS SUMMARY | 2017-10-23 15:10 | XMS | Encounter Summary ---
Demographics + + + | Address | [address] | | | [place] [address] | + + + | Home Phone | | + + + | Preferred Language | Unknown | + + + | Marital Status | | + + + | Judaism Affiliation | 1076 | + + + | Race | Unknown | + + + | Ethnic Group | Unknown | + + + Author + + + | Author | [facility] [employer] | + + + | Organization | [facility] [employer] [facility] | + + + | Address | Unknown | + + + | Phone | Unavailable | + + + Support + + +---------+ + | Name | Relationship | Address | Phone | + + +---------+ + | Afsaneh Sewell | ECON | Unknown | | + + +---------+ + Care Team Providers + +------+ + | Care Neurophysiology Tech Name | Role | Phone | + +------+ + | Lacho Foster MD | PCP | | + +------+ + Encounter Details +--------+ + + + + | Date | Type | Department | Care Team | Description | +--------+ + + + + | 08/23/ | Telephone | [facility] | Marleni De La Fuente MA | | | 2017 | | Cardiology [facility] | | | | | | [address] | | | | | | [place] | | | | | | [address] | | | | | | [phone] | | | +--------+ + + + [...] | | | | | | [place] [address] | | | | | | [phone] | | | | | | | | +--------+---------+ + + + as of this encounter Visit Diagnoses Not on filein this encounter"
--- OUTSIDE RECORDS SUMMARY | 2017-10-23 15:10 | XMS | Encounter Summary ---
Demographics + + + | Address | [address] | | | [place] [address] | + + + | Home Phone | | + + + | Preferred Language | Unknown | + + + | Marital Status | | + + + | Temple Affiliation | 1076 | + + + | Race | Unknown | + + + | Ethnic Group | Unknown | + + + Author + + + | Author | [facility] [employer] [facility] | + + + | Organization | [facility] [facility] | + + + | Address | Unknown | + + + | Phone | Unavailable | + + + Support + + +---------+ + | Name | Relationship | Address | Phone | + + +---------+ + | Afsaneh Sewell | ECON | Unknown | | + + +---------+ + Care Team Providers + +------+ + | Care Flight Software Test Engineer Name | Role | Phone | + +------+ + | Lacho Foster MD | PCP | | + +------+ + Encounter Details +--------+ + + + + | Date | Type | Department | Care Team | Description | +--------+ + + + + | 08/21/ | Telephone | [facility] | Marleni De La Fuente MA | | | 2017 | | [facility]iology [facility] | | | | | | [address] | | | | | | [place] | | | | | | [address] | | | | | | [phone] | | | +--------+ + + + [...] | | | | | | [place] [address] | | | | | | [phone] | | | | | | | | +--------+---------+ + + + as of this encounter Visit Diagnoses Not on filein this encounter"
--- OUTSIDE RECORDS SUMMARY | 2017-10-23 15:10 | XMS | Encounter Summary ---
Demographics + + + | Address | [address] | | | [place] [address] | + + + | Home Phone [...] | Author | [facility] | + + + | Organization | [facility] | + + + | Address | Unknown | + + + | Phone | Unavailable | + + + Support + + +---------+ + | Name | Relationship | Address | Phone | + + +---------+ + | Afsaneh Sewell | ECON | Unknown | | + + +---------+ + Care Team Providers + +------+ + | Care Needle Control Cheniller Name | Role | Phone | + +------+ + | Lacho Foster MD | PCP | | + +------+ + Reason for Visit +--------+ + | Reason | Comments | +--------+ + | Other | [facility] CP rehab report | +--------+ + Encounter Details +--------+ + + + + | Date | Type | Department | Care Team | Description | +--------+ + + + + | 10/22/ | Documentati | M[facility]IS Wells | Marleni De La Fuente MA | Other ([facility] CP rehab | | 2018 | on Only | Cardiology [place] | | report) | | | | [address] | | | | | | [place] | | | | | | [address] | | | | | | [phone] | | | +--------+ + + + [...] | | | | | | [place] [address] | | | | | | [phone] | | | | | | | | +--------+---------+ + + + as of this encounter Visit Diagnoses Not on filein this encounter"
--- OUTSIDE RECORDS SUMMARY | 2017-10-23 15:10 | XMS | Encounter Summary ---
Demographics + + + | Address | [address] | | | [place] [address] | + + + | Home Phone | | + + + | Preferred Language | Unknown | + + + | Marital Status | | + + + | Protestant Affiliation | 1076 | + + + | Race | Unknown | + + + | Ethnic Group | Unknown | + + + Author + + + | Author | [facility] | + + + | Organization | [facility] [facility] | + + + | Address | Unknown | + + + | Phone | Unavailable | + + + Support + + +---------+ + | Name | Relationship | Address | Phone | + + +---------+ + | Afsaneh Sewell | ECON | Unknown | | + + +---------+ + Care Team Providers + +------+ + | Care Assistant Financial Accountant Name | Role | Phone | + +------+ + | Lacho Foster MD | PCP | | + +------+ + Reason for Visit +--------+ + | Reason | Comments | +--------+ + | Other | [facility] Cardio rehab notes | +--------+ + Encounter Details +--------+ + + + + | Date | Type | Department | Care Team | Description | +--------+ + + + + | 08/20/ | Documentati | MORIS Wells | Marleni De La Fuente MA | Other ([facility] Cardio | | 2018 | on Only | Cardiology [place] | | torri razo) | | | | [address] | | | | | | [place], [place] | | | | | | [address] | | | | | | [phone] | | | +--------+ + + + [...] | | | | | | [place] [address] | | | | | | [phone] | | | | | | | | +--------+---------+ + + + as of this encounter Visit Diagnoses Not on filein this encounter"
--- OUTSIDE RECORDS SUMMARY | 2017-10-23 15:10 | XMS | Clinical Summary ---
Demographics + + + | Address | [address] | | | [place] [address] | + + + | Home Phone | | + + + | Preferred Language | Unknown | + + + | Marital Status | | + + + | Baptist Affiliation | Unknown | + + + [...] Team Providers + +------+ + | Care Solids Control Technician Name | Role | Phone | + +------+ + PP | Unavailable | + +------+ + Source Comments MATTHEW is fully live on both [facility] Ambulatory and [facility] InPatient.[facility] Allergies Not on File Current Medications Not [...]
--- OUTSIDE RECORDS SUMMARY | 2017-10-23 15:10 | XMS | Encounter Summary ---
Demographics + + + | Address | [address] | | | [place] [address] | + + + | Home Phone | | + + + | Preferred Language | Unknown | + + + | Marital Status | | + + + | Advent Affiliation | 1076 | + + + | Race | Unknown | + + + | Ethnic Group | Unknown | + + + Author + + + | Author | [facility] | + + + | Organization | [facility] | + + + | Address | Unknown | + + + | Phone | Unavailable | + + + Support + + +---------+ + | Name | Relationship | Address | Phone | + + +---------+ + | Afsaneh Sewell | ECON | Unknown | | + + +---------+ + Care Team Providers + +------+ + | Care Station Air Traffic Control Specialist Name | Role | Phone | + +------+ + | Lacho Foster MD | PCP | | + +------+ + Reason for Visit +--------+ + | Reason | Comments | +--------+ + | Other | [facility] CP rehab forms | +--------+ + Encounter Details +--------+ + + + + | Date | Type | Department | Care Team | Description | +--------+ + + + + | 10/22/ | Documentati | MORIS Wlels | Marleni De La Fuente MA | Other ([facility] CP rehab | | 2018 | on Only | [place] | | peter) | | | | [address] | | | | | | [place] | | | | | | [address] | | | | | | [phone] | | | +--------+ + + + [...] | | | | | | [place] [address] | | | | | | [phone] | | | | | | | | +--------+---------+ + + + as of this encounter Visit Diagnoses Not on filein this encounter"
--- OUTSIDE RECORDS SUMMARY | 2017-10-23 15:11 | XMS | Encounter Summary ---
Demographics + + + | Address | [address] | | | [place] [address] | + + + | Home Phone | | + + + | Preferred Language | Unknown | + + + | Marital Status | | + + + | Buddhism Affiliation | 1076 | + + + | Race | Unknown | + + + | Ethnic Group | Unknown | + + + Author + + + | Author | [facility] | + + + | Organization | [facility] | + + + | Address | Unknown | + + + | Phone | Unavailable | + + + Support + + +---------+ + | Name | Relationship | Address | Phone | + + +---------+ + | Afsaneh Sewell | ECON | Unknown | | + + +---------+ + Care Team Providers + +------+ + | Care Muff Winder Name | Role | Phone | + [...] [place] | | | | | | [address] | | | | | | [phone] | | | +--------+ + + + [...] | | | | | | [place] [address] | | | | | | [phone] | | | | | | | | +--------+---------+ + + + as of this encounter Visit Diagnoses Not on filein this encounter"
--- OUTSIDE RECORDS SUMMARY | 2017-10-23 15:11 | XMS | Encounter Summary ---
Demographics + + + | Address | [address] | | | [place] [address] | + + + | Home Phone | | + + + | Preferred Language | Unknown | + + + | Marital Status | | + + + | Christian Affiliation | 1076 | + + + | Race | Unknown | + + + | Ethnic Group | Unknown | + + + Author + + + | Author | [facility] | + + + | Organization | [facility] [employer] [facility] | + + + | Address | Unknown | + + + | Phone | Unavailable | + + + Support + + +---------+ + | Name | Relationship | Address | Phone | + + +---------+ + | Afsaneh Sewell | ECON | Unknown | | + + +---------+ + Care Team Providers + +------+ + | Care Career Technical Counselor Name | Role | Phone | + [...] [address] | | | | | | [place] [address] | | | | | | [phone] | | | +--------+ + + + [...] | | | | | | [place] [address] | | | | | | [phone] | | | | | | | | +--------+---------+ + + + as of this encounter Visit Diagnoses Not on filein this encounter"
--- OUTSIDE RECORDS SUMMARY | 2017-10-23 15:11 | XMS | Encounter Summary ---
Demographics + + + | Address | [address] | | | [place] [address] | + + + | Home Phone | | + + + | Preferred Language | Unknown | + + + | Marital Status | | + + + | Congregation Affiliation | 1076 | + + + | Race | Unknown | + + + | Ethnic Group | Unknown | + + + Author + + + | Author | [facility] | + + + | Organization | [facility] | + + + | Address | Unknown | + + + | Phone | Unavailable | + + + Support + + +---------+ + | Name | Relationship | Address | Phone | + + +---------+ + | Afsaneh Sewell | ECON | Unknown | | + + +---------+ + Care Team Providers + +------+ + | Care Admitted Attorneys Name | Role | Phone | + [...] [place] | | | | | | [address] | | | | | | [phone] | | | +--------+ + + + [...] | | | | | | [place] [address] | | | | | | [phone] | | | | | | | | +--------+---------+ + + + as of this encounter Visit Diagnoses Not on filein this encounter"
--- OUTSIDE RECORDS SUMMARY | 2017-10-23 15:11 | XMS | Clinical Summary ---
Demographics + + + | Address | [address] [employer] | | | [place] [address] | + + + | Home Phone | | + + + | Preferred Language | Unknown | + + + | Marital Status | | + + + | Anabaptism Affiliation | 1076 | + + + | Race | Unknown | + + + | Ethnic Group | Unknown | + + + Author + + + | Author | [facility] | | | and [place] | + + + | Organization | [facility] | | | [...] Team Providers + +------+ + | Care Bass String Winder Name | Role | Phone | [...]
--- OUTSIDE RECORDS SUMMARY | 2017-10-23 15:11 | XMS | Encounter Summary ---
Demographics + + + | Address | [address] | | | [place] [address] | + + + | Home Phone | | + + + | Preferred Language | Unknown | + + + | Marital Status | | + + + | Scientology Affiliation | 1076 | + + + | Race | Unknown | + + + | Ethnic Group | Unknown | + + + Author + + + | Author | [facility] [employer] | + + + | Organization | [facility] [employer] [facility] | + + + | Address | Unknown | + + + | Phone | Unavailable | + + + Support + + +---------+ + | Name | Relationship | Address | Phone | + + +---------+ + | Afsaneh Sewell | ECON | Unknown | | + + +---------+ + Care Team Providers + +------+ + | Care Facing Cutting Machine Operator Name | Role | Phone | + +------+ + | Lacho Foster MD | PCP | | + +------+ + Reason for Visit +--------+ + | Reason | Comments | +--------+ + | Other | [facility] Cardio rehab notes | +--------+ + Encounter Details +--------+ + + + + | Date | Type | Department | Care Team | Description | +--------+ + + + + | 08/20/ | Documentati | [facility] Wells | Marleni De La Fuente MA | Other ([facility] Cardio | | 2018 | on Only | Cardiology [place] | | torri razo) | | | | [address] | | | | | | [place], [place] | | | | | | [address] | | | | | | [phone] | | | +--------+ + + + [...] | | | | | | [place] [address] | | | | | | [phone] | | | | | | | | +--------+---------+ + + + as of this encounter Visit Diagnoses Not on filein this encounter"
--- OUTSIDE RECORDS SUMMARY | 2017-10-23 15:11 | XMS | Encounter Summary ---
Demographics + + + | Address | [address] | | | [place] [address] | + + + | Home Phone | | + + + | Preferred Language | Unknown | + + + | Marital Status | | + + + | Methodist Affiliation | 1076 | + + + | Race | Unknown | + + + | Ethnic Group | Unknown | + + + Author + + + | Author | [facility] | + + + | Organization | [facility] [facility] | + + + | Address | Unknown | + + + | Phone | Unavailable | + + + Support + + +---------+ + | Name | Relationship | Address | Phone | + + +---------+ + | Afsaneh Sewell | ECON | Unknown | | + + +---------+ + Care Team Providers + +------+ + | Care Coating And Baking Operator Name | Role | Phone | + +------+ + | Lacho Foster MD | PCP | | + +------+ + Reason for Visit +--------+ + | Reason | Comments | +--------+ + | Other | [facility] CP rehab form | +--------+ + Encounter Details +--------+ + + + + | Date | Type | Department | Care Team | Description | +--------+ + + + + | 09/24/ | Documentati | MORIS Wells | Marleni De La Fuente MA | Other ([facility] CP rehab | | 2018 | on Only | [place] | | jaz) | | | | [address] | | | | | | [place] | | | | | | [address] | | | | | | [phone] | | | +--------+ + + + [...] [place], | | | | | | [place] [address] | | | | | | [phone] | | | | | | | | +--------+---------+ + + + as of this encounter Visit Diagnoses Not on filein this encounter"
--- NOTE | 2017-10-23 20:54 | EKG ---
[facility] [address] [place] [address] Signed Sinus bradycardia with 1st degree AV block Incomplete right bundle branch block Borderline ECG No previous ECGs available Confirmed by CARLOS RHOADES MD ([id number]) on 10/23/2017 8:54:38 PM Electronically Signed By: CARLOS RHOADES MD 10/23/17 2054 PATIENT NAME: BETTY HAWLEY Electrocardiogram DATE OF : [birth year] PHYSICIAN: CARLOS RHOADES MD REPORT #: [id number] REPORT IS CONFIDENTIAL AND NOT TO BE RELEASED WITHOUT AUTHORIZATION
== END 2017-10-23 15:10 | disposition home or self-care (01) ==
LOC: ED 14:01
DX: S29.011A Strain of muscle and tendon of front wall of thorax, initial encounter (principal); E11.9 Type 2 diabetes mellitus without complications; I10 Essential (primary) hypertension; Z79.84 Long term (current) use of oral hypoglycemic drugs; Z79.82 Long term (current) use of aspirin; Z79.899 Other long term (current) drug therapy; W18.30XA Fall on same level, unspecified, initial encounter
CPT/HCPCS: 71046; 93005; 93010; 99283